=== PATIENT | female | born 1985 | race Caucasian/White ===

== ENCOUNTER → 2017-10-10 | Outpatient (CLI) | payer OTHER, BC | LOC: LABNPT 14:26 | PROVIDERS: ATTEND Obstetrics & Gynecology | DX: Z53.9 Procedure and treatment not carried out, unspecified reason (principal) ==

== ENCOUNTER 2017-11-06 21:22 | Outpatient (CLI) | payer OTHER ==
[~2017-11-06] VITALS: Ht 162.6 cm; Wt 68.5 kg
[2017-11-06 21:38] VITALS: BP 109/74
[2017-11-06 23:02] VITALS: BP 107/70
--- NOTE | 2017-11-07 13:55 | Physician Query-Final Dx ---
LUDY DESAI 11/07/17 1355: Clinic Account Progress/Dx Physician Query: Please give diagnosis Date of Service Nov 06, 2017 at 21:22 SANJANA LEDESMA MD 11/10/17 0809: Clinic Account Progress/Dx DIAGNOSIS: Diagnosis False labor LUDY DESAI Nov 07, 2017 13:55 SANJANA LEDESMA MD Nov 10, 2017 08:09
[2017-11-11] MEDS ORDERED: IBUP-1780 PO (08:20)
[2017-11-11] MEDS ORDERED: OXYC-465 PO (08:20)
[2017-11-11] MEDS ORDERED: DOCU100C37 PO (08:20)
== END 2017-11-06 23:20 | disposition home or self-care (01) ==
LOC: WSo 21:22 → LDRP 21:23 → WSo 23:20
PROVIDERS: ATTEND Obstetrics & Gynecology
DX: O47.1 False labor at or after 37 completed weeks of gestation (principal); Z3A.37 37 weeks gestation of pregnancy
CPT/HCPCS: 99213

== ENCOUNTER 2017-11-10 07:00 | Inpatient (IN) | payer BC, OTHER ==
[2017-11-10] VITALS (54 sets, daily range): BP systolic 87–119; BP diastolic 52–81
[~2017-11-10] VITALS: Ht 162.6 cm; Wt 70.0 kg
[2017-11-10] MEDS ORDERED: D5 LR IV SOLUTION 1,000 ML IV ONE (07:21)
[2017-11-10] MEDS: D5 LR IV SOLUTION 1,000 ML IV SCH ×2 (07:45→15:45)
[2017-11-10] MEDS ORDERED: OXYTOCIN/NORMAL SALINE 500 ML IV SCH ×2 (08:04→17:56)
[2017-11-10] MEDS ORDERED: PREN-148 PO (08:14)
[2017-11-10] MEDS ORDERED: LEVO88TA54 PO (08:14)
[2017-11-10 08:31] LABS: BASOPHILS % (AUTO) 0 % (0-10); EOSINOPHILS # (AUTO) 0.1 10^3/uL (0.0-0.3); EOSINOPHILS % (AUTO) 1 % (0-10); HEMATOCRIT 38 % (35-52); HEMOGLOBIN 13.3 G/DL (11.5-16.0); LYMPHOCYTES # (AUTO) 2.4 X 10^3 (1.0-4.0); LYMPHOCYTES % (AUTO) 21 % (12-44); MEAN CORPUSCULAR HEMOGLOBIN 33 PG (25-34); MEAN CORPUSCULAR HGB CONC 35 G/DL (32-36); MEAN CORPUSCULAR VOLUME 93 FL (80-99); MEAN PLATELET VOLUME 10.4 FL (7.4-10.4); MONOCYTES # (AUTO) 0.8 X 10^3 (0.0-1.0); MONOCYTES % (AUTO) 7 % (0-12); NEUTROPHILS # (AUTO) 8.3 X 10^3 (1.8-7.8); NEUTROPHILS % (AUTO) 71 % (42-75); PLATELET COUNT 142 10^3/uL (130-400); RED BLOOD COUNT 4.06 10^6/uL (4.35-5.85); RED CELL DISTRIBUTION WIDTH 13.3 % (10.0-14.5); WHITE BLOOD COUNT 11.7 10^3/uL (4.3-11.0)
[2017-11-10] MEDS ORDERED: SUFENTA 0.6MCG/ML BUPIVA 0.125 100 ML ONE (09:30)
[2017-11-10] MEDS ORDERED: fentaNYL INJECTION 100 MCG/2 ML AMP ONE (09:32)
[2017-11-10] MEDS ORDERED: BUPIVACAINE 0.25% 30 ML (SENSORCAINE) VIAL ONE (09:32)
[2017-11-10] MEDS ORDERED: LACTATED RINGERS 1,000 ML IV SCH (10:13)
[2017-11-10] MEDS ORDERED: diphenhydrAMINE 50 MG/ML INJ (BENADRYL) IV PRN (10:15)
[2017-11-10] MEDS ORDERED: NALOXONE 0.4 MG/ML 1 ML (NARCAN) VIAL IV PRN ×2 (10:15)
[2017-11-10] MEDS ORDERED: METOCLOPRAMIDE INJ 10 MG/2 ML (REGLAN) IV PRN (10:15)
[2017-11-10] MEDS ORDERED: ONDANSETRON 4 MG/2 ML (SDV) Z0FRAN IV PRN (10:15)
[2017-11-10] MEDS ORDERED: EPIDURAL (SUFENTA 0.6MCG/ML BUPIVA 0.125%) 100 ML BAG EPI PRN (10:15)
[2017-11-10] MEDS ORDERED: CATHETER FLUSH 10 ML SYR IV SCH (14:00)
[2017-11-10] MEDS ORDERED: LIDOCAINE/EPI 2% 1:200,00 (XYLOCAINE) 10 ML VIAL ONE (16:58)
[2017-11-10] MEDS ORDERED: ONDANSETRON 4 MG/2 ML (SDV) Z0FRAN IVP PRN (18:00)
[2017-11-10] MEDS ORDERED: TETANUS,DIPTH,PERTUSS P/F (BOOSTRIX) 0.5 ML VIAL IM ONE (18:00)
[2017-11-10] MEDS: KETOROLAC 30 MG/ML VIAL IV SCH (18:20)
[2017-11-10] MEDS: DOCUSATE SODIUM 100 MG (COLACE) CAP PO SCH (21:14)
[2017-11-10] MEDS: oxyCODONE/APAP 10/325MG (PERCOCET 10) TABLET PO PRN (21:14)
--- NOTE | 2017-11-11 00:26 | OPERATIVE REPORT ---
DATE OF SERVICE: 11/10/2017 DELIVERY NOTE The patient delivered by term spontaneous vaginal delivery a viable female infant with Apgars of 8 and 8 at 1 and 5 minutes respectively, weight of 8 pounds. Cord blood gas of 7.22 and a time of 1726. The was delivered over a midline episiotomy that was performed when the patient was unable to expel the baby over the perineum for lack of enough space. She requested episiotomy that was performed under local and the remnants of her epidural. Delivery was accomplished promptly thereafter. The infant was bulb suctioned on delivery of the head and again on completion of delivery. The umbilical cord was doubly clamped, father cut the cord and the baby was passed to mom's abdomen. Cord bloods were obtained. The placenta delivered spontaneously [place]. It was normal with a 3-vessel cord. The cervix, vagina, rectum and perineum were examined and found intact, except for the midline episiotomy, which was repaired with a single suture of 3-0 Vicryl Rapide in the usual manner until good hemostasis and good reapproximation. Sponge and needle counts were correct on completion of the delivery and the repair. Estimated blood loss was around 300 mL. The patient remained in the LDR for recovery. The baby remained with the mom. Job ID: [id number] DocumentID: [id number] Dictated Date: 11/10/2017 17:53:33 Storm Sash Maker Date: 11/11/2017 00:25:41 Dictated By: SANJANA LEDESMA MD
[2017-11-11] MEDS: KETOROLAC 30 MG/ML VIAL IV SCH ×2 (00:27→05:54)
[2017-11-11 00:30] VITALS: BP 92/57
[2017-11-11 05:55] VITALS: BP 100/69
[2017-11-11] MEDS: BENZOCAINE/MENTHOL (DERMOPLAST) 56 ML CAN TP PRN (06:19)
--- NOTE | 2017-11-11 08:19 | Progress Note-Standard ---
Standard Progress Note Progress Notes/Assess & Plan Date Seen by Provider: Nov 11, 2017 Time Seen by Provider: 08:19 Progress/Assessment & Plan This patient is without complaint. She is ambulating, voiding, tolerating by mouth well, has good pain control. Patient denies chest pain, denies shortness of breath, denies nausea vomiting, denies headache. Vital Signs Date Time Temp Pulse Resp B/P (MAP) Pulse Ox O2 Delivery O2 Flow Rate FiO2 11/11/17 05:55 98.0 66 18 100/69 (79) 97 11/11/17 00:30 98.4 68 18 92/57 (69) 98 Room Air 11/10/17 21:25 70 18 105/71 (82) Room Air 11/10/17 20:25 74 18 105/67 (80) Room Air 11/10/17 20:18 74 18 112/55 (74) Room Air 11/10/17 19:55 96.9 77 18 102/62 (75) Room Air 11/10/17 19:40 71 18 106/66 (79) Room Air 11/10/17 19:25 97.5 82 18 115/66 (82) Room Air 11/10/17 19:10 85 18 106/73 (84) Room Air 11/10/17 18:55 87 18 106/69 (81) Room Air 11/10/17 18:40 74 18 103/68 (80) Room Air 11/10/17 18:25 97.8 83 18 96/60 (72) Room Air 11/10/17 18:10 73 18 107/72 (84) Room Air 11/10/17 17:56 85 18 115/75 (88) Room Air 11/10/17 17:55 77 18 113/74 (87) Room Air 11/10/17 17:40 86 18 110/67 (81) Room Air 11/10/17 17:11 80 18 112/72 (85) Room Air 11/10/17 16:42 87 18 115/72 (86) Room Air 11/10/17 16:26 71 18 103/73 (83) Room Air 11/10/17 16:11 97.4 83 18 112/77 (89) Room Air 11/10/17 15:56 76 18 117/81 (93) Room Air 11/10/17 15:43 99 18 111/73 (86) Room Air 11/10/17 15:26 72 18 110/72 (85) Room Air 11/10/17 15:12 77 18 95/57 (70) Room Air 11/10/17 14:58 74 18 110/72 (85) Room Air 11/10/17 14:25 75 18 98/56 (70) Room Air 11/10/17 14:12 67 18 94/56 (69) Room Air 11/10/17 13:59 75 18 110/67 (81) Room Air 11/10/17 13:42 70 18 112/72 (85) Room Air 11/10/17 13:28 97.4 83 18 114/76 (89) Room Air 11/10/17 13:26 75 18 87/52 (64) Room Air 11/10/17 13:10 68 18 102/66 (78) Room Air 11/10/17 12:55 68 18 99/65 (76) Room Air 11/10/17 12:42 68 18 110/71 (84) Room Air 11/10/17 12:25 86 18 113/79 (90) Room Air 11/10/17 12:12 74 18 115/77 (90) 100 Room Air 11/10/17 11:55 82 18 109/72 (84) 100 Room Air 11/10/17 11:42 73 18 112/73 (86) 99 Room Air 11/10/17 11:30 81 18 108/72 (84) 100 Room Air 11/10/17 11:10 70 18 101/65 (77) 97 Room Air 11/10/17 11:00 74 18 104/68 (80) 98 Room Air 11/10/17 10:45 68 18 106/66 (79) 99 Room Air 11/10/17 10:35 98.6 66 18 108/67 (81) 99 Room Air 11/10/17 10:20 83 18 108/70 (83) 98 Room Air 11/10/17 10:15 77 18 110/71 (84) 98 Room Air 11/10/17 10:12 83 18 113/71 (85) 99 Room Air 11/10/17 10:09 78 18 116/74 (88) 99 Room Air 11/10/17 10:05 77 18 113/69 (84) 99 Room Air 11/10/17 10:02 78 18 108/66 (80) 99 Room Air 11/10/17 09:59 79 18 115/69 (84) 99 Room Air 11/10/17 09:57 77 18 116/71 (86) 98 Room Air 11/10/17 09:51 75 18 114/73 (87) 98 Room Air 11/10/17 09:45 80 18 119/73 (88) 100 Room Air 11/10/17 09:30 73 18 104/67 (79) 11/10/17 08:58 75 18 109/70 (83) I & O 11/11/17 07:00 Intake Total 2500 ml Balance 2500 ml Signs are stable. Patient is afebrile. Fundus is firm below the umbilicus and nontender. Extremities show no clubbing cyanosis. There is no Homans sign. Assessment and plan day number 1 status post term spontaneous vaginal delivery doing well. Plan is for routine convalescence care with discharge home on patient request Final Diagnosis Term spontaneous vaginal delivery SANJANA LEDESMA MD Nov 11, 2017 8:19 am
[2017-11-11] MEDS ORDERED: IBUP-1780 PO (08:20)
[2017-11-11] MEDS ORDERED: DOCU100C37 PO (08:20)
[2017-11-11] MEDS ORDERED: OXYC-465 PO (08:20)
--- NOTE | 2017-11-11 08:22 | Discharge Instructions ---
Discharge Instructions Discharge Medications New, Converted or Re-Newed RX: RX on Chart Patient Instructions Patient Instructions: As directed Return to The Hospital For: As directed Activity & Diet Discharge Diet: No Restrictions Activity as Tolerated: No Orders-Post D/C & Referrals Follow Up Appt: Call to make follow up appt. for patient in 4 weeks. Activity Per routine post vaginal delivery instructions. Diet as tolerated Patient may shower or tub bathe as desired. SANJANA LEDESMA MD Nov 11, 2017 8:22 am
[2017-11-11 08:30] VITALS: BP 107/72
[2017-11-11] MEDS: DOCUSATE SODIUM 100 MG (COLACE) CAP PO SCH ×2 (09:36→22:16)
[2017-11-11] MEDS: oxyCODONE/APAP 10/325MG (PERCOCET 10) TABLET PO PRN ×2 (10:23→23:54)
[2017-11-11 12:15] VITALS: BP 105/72
[2017-11-11] MEDS: IBUPROFEN 800 MG (MOTRIN) TAB PO SCH ×2 (15:02→22:16)
[2017-11-11 17:10] VITALS: BP 96/65
[2017-11-11 22:10] VITALS: BP 88/59
[2017-11-12 04:10] VITALS: BP 90/62
[2017-11-12] MEDS: IBUPROFEN 800 MG (MOTRIN) TAB PO SCH ×3 (04:12→20:12)
[2017-11-12] MEDS: DOCUSATE SODIUM 100 MG (COLACE) CAP PO SCH ×2 (08:15→20:12)
--- NOTE | 2017-11-12 08:30 | Progress Note-Standard ---
Standard Progress Note Progress Notes/Assess & Plan Date Seen by Provider: Nov 12, 2017 Time Seen by Provider: 08:29 Progress/Assessment & Plan This patient is without complaint. She is ambulating, voiding, tolerating by mouth well, has good pain control. Patient denies chest pain, denies shortness of breath, denies nausea vomiting, denies headache. Vital Signs Date Time Temp Pulse Resp B/P (MAP) Pulse Ox O2 Delivery O2 Flow Rate FiO2 11/11/17 05:55 98.0 66 18 100/69 (79) 97 11/11/17 00:30 98.4 68 18 92/57 (69) 98 Room Air 11/10/17 21:25 70 18 105/71 (82) Room Air 11/10/17 20:25 74 18 105/67 (80) Room Air 11/10/17 20:18 74 18 112/55 (74) Room Air 11/10/17 19:55 96.9 77 18 102/62 (75) Room Air 11/10/17 19:40 71 18 106/66 (79) Room Air 11/10/17 19:25 97.5 82 18 115/66 (82) Room Air 11/10/17 19:10 85 18 106/73 (84) Room Air 11/10/17 18:55 87 18 106/69 (81) Room Air 11/10/17 18:40 74 18 103/68 (80) Room Air 11/10/17 18:25 97.8 83 18 96/60 (72) Room Air 11/10/17 18:10 73 18 107/72 (84) Room Air 11/10/17 17:56 85 18 115/75 (88) Room Air 11/10/17 17:55 77 18 113/74 (87) Room Air 11/10/17 17:40 86 18 110/67 (81) Room Air 11/10/17 17:11 80 18 112/72 (85) Room Air 11/10/17 16:42 87 18 115/72 (86) Room Air 11/10/17 16:26 71 18 103/73 (83) Room Air 11/10/17 16:11 97.4 83 18 112/77 (89) Room Air 11/10/17 15:56 76 18 117/81 (93) Room Air 11/10/17 15:43 99 18 111/73 (86) Room Air 11/10/17 15:26 72 18 110/72 (85) Room Air 11/10/17 15:12 77 18 95/57 (70) Room Air 11/10/17 14:58 74 18 110/72 (85) Room Air 11/10/17 14:25 75 18 98/56 (70) Room Air 11/10/17 14:12 67 18 94/56 (69) Room Air 11/10/17 13:59 75 18 110/67 (81) Room Air 11/10/17 13:42 70 18 112/72 (85) Room Air 11/10/17 13:28 97.4 83 18 114/76 (89) Room Air 11/10/17 13:26 75 18 87/52 (64) Room Air 11/10/17 13:10 68 18 102/66 (78) Room Air 11/10/17 12:55 68 18 99/65 (76) Room Air 11/10/17 12:42 68 18 110/71 (84) Room Air 11/10/17 12:25 86 18 113/79 (90) Room Air 11/10/17 12:12 74 18 115/77 (90) 100 Room Air 11/10/17 11:55 82 18 109/72 (84) 100 Room Air 11/10/17 11:42 73 18 112/73 (86) 99 Room Air 11/10/17 11:30 81 18 108/72 (84) 100 Room Air 11/10/17 11:10 70 18 101/65 (77) 97 Room Air 11/10/17 11:00 74 18 104/68 (80) 98 Room Air 11/10/17 10:45 68 18 106/66 (79) 99 Room Air 11/10/17 10:35 98.6 66 18 108/67 (81) 99 Room Air 11/10/17 10:20 83 18 108/70 (83) 98 Room Air 11/10/17 10:15 77 18 110/71 (84) 98 Room Air 11/10/17 10:12 83 18 113/71 (85) 99 Room Air 11/10/17 10:09 78 18 116/74 (88) 99 Room Air 11/10/17 10:05 77 18 113/69 (84) 99 Room Air 11/10/17 10:02 78 18 108/66 (80) 99 Room Air 11/10/17 09:59 79 18 115/69 (84) 99 Room Air 11/10/17 09:57 77 18 116/71 (86) 98 Room Air 11/10/17 09:51 75 18 114/73 (87) 98 Room Air 11/10/17 09:45 80 18 119/73 (88) 100 Room Air 11/10/17 09:30 73 18 104/67 (79) 11/10/17 08:58 75 18 109/70 (83) I & O 11/11/17 07:00 Intake Total 2500 ml Balance 2500 ml Signs are stable. Patient is afebrile. Fundus is firm below the umbilicus and nontender. Extremities show no clubbing cyanosis. There is no Homans sign. Assessment and plan day number 1 status post term spontaneous vaginal delivery doing well. Plan is for routine convalescence care with discharge home on patient request November 12, 2017 Patient is without complaint. She is ambulating, voiding, tolerating by mouth well, has good pain control. Patient is ready for discharge home however her baby will not be discharged as it has an elevated bilirubin. Patient will be discharged home and allowed to remain Vital Signs Date Time Temp Pulse Resp B/P (MAP) Pulse Ox O2 Delivery O2 Flow Rate FiO2 11/12/17 04:10 97.8 68 18 90/62 (71) 98 11/11/17 22:10 98.1 74 18 88/59 (69) 97 11/11/17 17:10 97.4 71 18 96/65 (75) 99 Room Air 11/11/17 12:15 97.6 74 18 105/72 (83) 100 Room Air 11/11/17 08:30 97.9 72 18 107/72 (84) 100 Room Air Signs are stable. Patient is afebrile. Fundus is firm below the umbilicus and nontender. Extremities show no clubbing cyanosis. There is no Homans sign. Assessment and plan day number 2 status post term spontaneous vaginal delivery doing well. Plan is for discharge to allow remaining in the baby is not to be discharged today Final Diagnosis T SANJANA JOY MD Nov 12, 2017 8:30 am
[2017-11-12 09:15] VITALS: BP 120/82
[2017-11-12] MEDS: oxyCODONE/APAP 10/325MG (PERCOCET 10) TABLET PO PRN ×3 (09:47→23:18)
[2017-11-12 12:50] VITALS: BP 131/88
[2017-11-12] MEDS: BENZOCAINE/MENTHOL (DERMOPLAST) 56 ML CAN TP PRN (13:05)
[2017-11-12 20:10] VITALS: BP 111/81
== END 2017-11-12 23:20 | disposition home or self-care (01) | DRG 775 ==
LOC: LDRP 07:00
PROVIDERS: ADMIT Obstetrics & Gynecology; ATTEND Obstetrics & Gynecology
PROC: 0W8NXZZ Division of Female Perineum, External Approach (ICD-10-PCS; principal; 2017-11-10)
PROC: 10E0XZZ Delivery of Products of Conception, External Approach (ICD-10-PCS; 2017-11-10)
DX: O80 Encounter for full-term uncomplicated delivery (principal); Z37.0 Single live birth; Z3A.37 37 weeks gestation of pregnancy
CPT/HCPCS: 36415; 82947; 82962; 85025; 86850; 86900; 86901

== ENCOUNTER 2020-01-20 05:56 | Outpatient (RCR) | payer OTHER ==
--- NOTE | 2020-01-16 11:58 | Discharge Inst-Surgical ---
Discharge Inst-Surgical Depart Medication/Instructions New, Converted or Re-Newed RX: RX on Chart Consults/Follow Up Patient Instructions: as directed Orders & Referrals Follow Up Appt: RTC on Monday January 27, 2020 at 0930 for staple removal Call to make follow up appt. for patient in 4 weeks with me. RTC with Dr. Dunn pr his instructions Activity: Rest for 24 hours, than as tolerated. Wound Care: May remove Band-Aid tomorrow. Replace as desired. Keep incisions clean and dry. Wash daily with soap and water. Please call in RX to patient pharmacy. Diet: As tolerated-Clear Liquids only if nauseated. Tomorrow, may shower or tub bathe as desired. No driving for 24 hours, no alcoholic beverages for 24 hours, and nothing per vagina (no tampons, douching, or intercourse) for 8 weeks. Patient to return to the clinic as soon as possible for: Temperature greater than 101F, Severe Pain, Foul discharge from incision or vagina, Excessive Bleeding (more than a period). Activity Activity as Tolerated: No Diet Discharge Diet: No Restrictions SANJANA LEDESMA MD Jan 16, 2020 11:58
[~2020-01-20] VITALS: Ht 162.6 cm; Wt 58.2 kg
[~2020-01-20 05:56] MED LIST: DOCU100C37 PO; IBUP-1780 PO; LEVO175T5 PO; LEVO88TA54 PO; OXYC-465 PO; PREN-148 PO
== END 2020-01-20 15:13 | disposition home or self-care (01) ==
LOC: PREOP 05:56
PROVIDERS: ATTEND Obstetrics & Gynecology
DX: Z01.818 Encounter for other preprocedural examination (principal); Z11.59 Encounter for screening for other viral diseases
CPT/HCPCS: 87635

== ENCOUNTER 2020-01-24 11:02 | Day surgery (SDC) | payer OTHER ==
[2020-01-24] VITALS (10 sets, daily range): BP systolic 102–127; BP diastolic 56–89
[~2020-01-24] VITALS: Ht 162.6 cm; Wt 58.2 kg
[2020-01-24] MEDS ORDERED: ceFAZolin INJECTION 1,000 MG in WATER (STERILE) FOR INJECTION 10 ML IV ONE (11:15)
[2020-01-24] MEDS: LACTATED RINGERS 1,000 ML IV PRN ×2 (11:25→13:55)
[2020-01-24 11:44] LABS: BASOPHILS # (AUTO) 0.1 10^3/uL (0.0-0.1); BASOPHILS % (AUTO) 1 % (0-10); EOSINOPHILS # (AUTO) 0.2 10^3/uL (0.0-0.3); EOSINOPHILS % (AUTO) 2 % (0-10); HEMATOCRIT 43 % (35-52); HEMOGLOBIN 15.5 G/DL (11.5-16.0); LYMPHOCYTES # (AUTO) 2.6 X 10^3 (1.0-4.0); LYMPHOCYTES % (AUTO) 32 % (12-44); MEAN CORPUSCULAR HEMOGLOBIN 32 PG (25-34); MEAN CORPUSCULAR HGB CONC 36 G/DL (32-36); MEAN CORPUSCULAR VOLUME 90 FL (80-99); MEAN PLATELET VOLUME 10.2 FL (7.4-10.4); MONOCYTES # (AUTO) 0.4 X 10^3 (0.0-1.0); MONOCYTES % (AUTO) 5 % (0-12); NEUTROPHILS # (AUTO) 4.8 X 10^3 (1.8-7.8); NEUTROPHILS % (AUTO) 60 % (42-75); PLATELET COUNT 230 10^3/uL (130-400); RED CELL DISTRIBUTION WIDTH 12.5 % (10.0-14.5)
[2020-01-24] MEDS ORDERED: BUP/EPI 0.5% 1:200,000 (SENSORCAINE) 30 ML VIAL ONE (12:13)
[2020-01-24] MEDS ORDERED: ESTRADIOL VAGINAL CREAM 42.5 GM (ESTRACE) VG ONE (12:13)
--- OUTSIDE RECORDS SUMMARY | 2020-01-24 12:35 | XMS REPORT | Continuity of Care Document ---
Author Organization Unknown Address Unknown Phone Unavailable Allergies Active Description Code Type Severity Reaction Onset Reported/Identified Relationship to Patient Clinical Status Yes No Known Drug Allergies [id number] Drug Allergy Unknown N/A 10/08/2008 Yes Penicillins [id number] Drug Aller gy Unknown N/A 11/06/2017 Yes Sulfa (Sulfonamide Antibiotics) [id number] Drug Allergy Unknown N/A 018 Medications There is no data. Problems Date Dx Coded Attending Type Code Diagnosis Diagnosed By 07/13/1512 SANJANA LEDESMA MD, Ot Z01.818 ENCOUNTER FOR OTHER PREPROCEDURAL EXAMIN 07/13/1512 SANJANA LEDESMA MD, Ot Z11.59 ENCOUNTER FOR SCREENING FOR OTHER VIRAL 01/16/2014 F 729.5 Pain in limb 03/27/2014 F 079.99 Vir al infection, unspec. 04/04/2014 F 473.9 UNSP ECIFIED SINUSITIS (CHRONIC) 04/04/2014 F V72.41 PRE GNANCY EXAMINATION OR TEST, NEGATIVE RESULT 09/10/2014 F 381.81 DYS FUNCTION OF EUSTACHIAN TUBE 12/08/2014 SAÚL FOWLER F 626. 0 ABSENCE OF MENSTRUATION 12/08/2014 SAÚL FOWLER F 626. 0 ABSENCE OF MENSTRUATION 01/23/2015 SAÚL FOWLER F 053. 9 HERPES ZOSTER WITHOUT MENTION OF COMPLICATION 10/11/2017 SANJANA LEDESMA MD, Ot Z53.9 PROCEDURE AND TREATMENT NOT CARRIED OUT, 11/06/2017 SANJANA LEDESMA MD, Ot O47.1 FALSE LABOR AT OR AFTER 37 COMPLETED WEE 11/06/2017 SANJANA LEDESMA MD, Ot Z3A.37 37 WEEKS GESTATION OF 11/07/2017 SANJANA LEDESMA MD, Ot Z53.9 PROCEDURE AND TREATMENT NOT CARRIED OUT, 11/10/2017 SANJANA LEDESMA MD, Ot O47.1 FALSE LABOR AT OR AFTER 37 COMPLETED WEE 11/10/2017 SANJANA LEDESMA MD, Ot Z3A.37 37 WEEKS GESTATION OF 11/12/2017 SANJANA LEDESMA MD, Ot O47.1 FALSE LABOR AT OR AFTER 37 COMPLETED WEE 11/12/2017 SANJANA LEDESMA MD, Ot Z3A.37 37 WEEKS GESTATION OF 11/12/2017 SANJANA LEDESMA MD, Ot O80 ENCOUNTER FOR FULL-TERM UNCOMPLICATED DE 11/12/2017 SANJANA LEDESMA MD, Ot Z37.0 SINGLE LIVE 11/12/2017 SANJANA LEDESMA MD, Ot Z3A.37 37 WEEKS GESTATION OF 11/27/2017 SANJANA LEDESMA MD, Ot Z53.9 PROCEDURE AND TREATMENT NOT CARRIED OUT, Procedures Code Description Performed By Sathya fuller On [id number] DI VISION OF FEMALE PERINEUM, EXTERNAL AP 11/10/2017 [id number] DE LIVERY OF PRODUCTS OF CONCEPTION, EXTE 11/10/2017 Results Test Result Range Serum or plasma glucose measurement (mas s/volume) - 11/10/17 07:45 Serum or plasma glucose measurement (mass/volume) 77 mg/dL 70-105 Complete blood count (CBC) with automate d white blood cell (WBC) differential - 11/10/17 07:45 Blood leukocytes automated count (number/volume) 11.7 10*3/uL 4.3-11.0 Blood erythrocytes automated count (number/volume) 4.06 10*6/uL 4.35-5.85 Venous blood hemoglobin measurement (mass/volume) 13.3 g/dL 11.5-16.0 Blood hematocrit (volume fraction) 38 % 35-52 Automated erythrocyte mean corpuscular volume 93 [ foz_us] 80-99 Automated erythrocyte mean corpuscular h emoglobin (mass per erythrocyte) 33 pg 25-34 Automated erythrocyte mean corpuscular h emoglobin concentration measurement (mass/volume) 35 g/dL 32-36 Automated erythrocyte distribution width ratio 13. 3 % 10.0- 14.5 Automated blood platelet count (count/volume) 142 10*3/uL 130-400 Automated blood platelet mean volume measurement 10.4 [foz_us] 7.4-10.4 Automated blood neutrophils/100 leukocytes 71 % 42-75 Automated blood lymphocytes/100 leukocytes 21 % 12-44 Blood monocytes/100 leukocytes 7 % 0-12 Automated blood eosinophils/100 leukocytes 1 % 0-10 Automated blood basophils/100 leukocytes 0 % 0-10 Blood neutrophils automated count (number/volume) 8.3 10*3 1.8-7.8 Blood lymphocytes automated count (number/volume) 2.4 10*3 1.0-4.0 Blood monocytes automated count (number/volume) 0. 8 10*3 0.0-1.0 Automated eosinophil count 0.1 10*3/uL 0 .0-0.3 Automated blood basophil count (count/volume) 0.0 10*3/uL 0.0-0.1 Blood type T Indirect antibody screen [facility] - 11/10/17 07:45 ABO+Rh group BP NRG Transfusion band number [id number] NRG Blood group antibody screen NEGATIVE NR G Capillary blood glucose measurement by g lucometer (mass/volume) - 11/10/17 08:54 Capillary blood glucose measurement by glucometer (mas s/volume) 89 mg/dL 70-110 TSH w/ FREE T4 - 01/16/19 08:25 TSH 4.41 mIU/L NRG T4, FREE 1.2 ng/dL 0.8-1.8 LIPID PANEL - 01/16/19 08:25 CHOLESTEROL, TOTAL 176 mg/dL <200 HDL CHOLESTEROL 70 mg/dL >50 TRIGLYCERIDES 38 mg/dL <150 LDL-CHOLESTEROL 95 mg/dL (calc) NRG CHOL/HDLC RATIO 2.5 (calc) <5.0 NON HDL CHOLESTEROL 106 mg/dL (calc) <13 0 CMP - 01/16/19 08:25 GLUCOSE 69 mg/dL 65-99 UREA NITROGEN (BUN) 9 mg/dL 7-25 CREATININE 0.62 mg/dL 0.50-1.10 eGFR NON-AFR. BAHRAINI 118 mL/min/1.73m2 > OR = 60 eGFR 137 mL/min/1.73m2 > OR = 60 BUN/CREATININE RATIO NOT APPLICABLE (calc) 6-22 SODIUM 139 mmol/L 135-146 POTASSIUM 3.9 mmol/L 3.5-5.3 CHLORIDE 104 mmol/L 98-110 CARBON DIOXIDE 28 mmol/L 20-32 CALCIUM 9.2 mg/dL 8.6-10.2 PROTEIN, TOTAL 6.9 g/dL 6.1-8.1 ALBUMIN 4.7 g/dL 3.6-5.1 GLOBULIN 2.2 g/dL (calc) 1.9-3.7 ALBUMIN/GLOBULIN RATIO 2.1 (calc) 1.0-2. 5 BILIRUBIN, TOTAL 0.6 mg/dL 0.2-1.2 ALKALINE PHOSPHATASE 69 U/L 33-115 AST 22 U/L 10-30 ALT 20 U/L 6-29 CBC w/MANUAL DIFF - 01/16/19 08:25 WHITE BLOOD CELL COUNT 6.6 Thousand/uL 3 .8-10.8 RED BLOOD CELL COUNT 4.51 Million/uL 3.8 0-5.10 HEMOGLOBIN 14.3 g/dL 11.7-15.5 HEMATOCRIT 42.1 % 35.0-45.0 MCV 93.3 fL 80.0-100.0 MCH 31.7 pg 27.0-33.0 MCHC 34.0 g/dL 32.0-36.0 RDW 12.3 % 11.0-15.0 PLATELET COUNT 197 Thousand/uL 140-400 MPV 10.1 fL 7.5-12.5 ABSOLUTE NEUTROPHILS 3755 cells/uL 1500- 7800 ABSOLUTE MONOCYTES 257 cells/uL 200-950 ABSOLUTE EOSINOPHILS 257 cells/uL 15-500 ABSOLUTE BASOPHILS 0 cells/uL 0-200 NEUTROPHILS 56.9 % NRG LYMPHOCYTES 33.3 % NRG MONOCYTES 3.9 % NRG EOSINOPHILS 3.9 % NRG BASOPHILS 0 % NRG ABSOLUTE BAND NEUTROPHILS 132 cells/uL 0 -750 ABSOLUTE LYMPHOCYTES 2198 cells/uL 850-3 900 BAND NEUTROPHILS 2.0 % NRG PLATELET ESTIMATION ADEQUATE ADEQUATE CBC MORPHOLOGY NORMAL COMMENT(S) NRG CBC w/MANUAL DIFF - 03/05/19 09:02 WHITE BLOOD CELL COUNT 6.4 Thousand/uL 3 .8-10.8 RED BLOOD CELL COUNT 4.66 Million/uL 3.8 0-5.10 HEMOGLOBIN 15.1 g/dL 11.7-15.5 HEMATOCRIT 43.7 % 35.0-45.0 MCV 93.8 fL 80.0-100.0 MCH 32.4 pg 27.0-33.0 MCHC 34.6 g/dL 32.0-36.0 RDW 12.0 % 11.0-15.0 PLATELET COUNT 211 Thousand/uL 140-400 MPV 9.9 fL 7.5-12.5 ABSOLUTE NEUTROPHILS 3840 cells/uL 1500- 7800 ABSOLUTE MONOCYTES 256 cells/uL 200-950 ABSOLUTE EOSINOPHILS 192 cells/uL 15-500 ABSOLUTE BASOPHILS 128 cells/uL 0-200 NEUTROPHILS 60.0 % NRG LYMPHOCYTES 31.0 % NRG MONOCYTES 4.0 % NRG EOSINOPHILS 3.0 % NRG BASOPHILS 2.0 % NRG ABSOLUTE LYMPHOCYTES 1984 cells/uL 850-3 900 PLATELET ESTIMATION ADEQUATE ADEQUATE CBC MORPHOLOGY NORMAL COMMENT(S) NRG VITAMIN D, 25-H - 11/15/19 08:08 VITAMIN D,25-OH,TOTAL,IA 38 ng/mL 30-10 0 Coronavirus SARS-CoV-2 SO 2018 - 0 08:42 Coronavirus Ab [Units/volume] in Serum Negative Negative Complete blood count (CBC) with automate d white blood cell (WBC) differential - 01/24/20 11:25 Blood leukocytes automated count (number/volume) 8.0 10*3/uL 4.3-11.0 Blood erythrocytes automated count (number/volume) 4.78 10*6/uL 4.35-5.85 Venous blood hemoglobin measurement (mass/volume) 15.5 g/dL 11.5-16.0 Blood hematocrit (volume fraction) 43 % 35-52 Automated erythrocyte mean corpuscular volume 90 [ foz_us] 80-99 Automated erythrocyte mean corpuscular h emoglobin (mass per erythrocyte) 32 pg 25-34 Automated erythrocyte mean corpuscular h emoglobin concentration measurement (mass/volume) 36 g/dL 32-36 Automated erythrocyte distribution width ratio 12. 5 % 10.0- 14.5 Automated blood platelet count (count/volume) 230 10*3/uL 130-400 Automated blood platelet mean volume measurement 10.2 [foz_us] 7.4-10.4 Automated blood neutrophils/100 leukocytes 60 % 42-75 Automated blood lymphocytes/100 leukocytes 32 % 12-44 Blood monocytes/100 leukocytes 5 % 0-12 Automated blood eosinophils/100 leukocytes 2 % 0-10 Automated blood basophils/100 leukocytes 1 % 0-10 Blood neutrophils automated count (number/volume) 4.8 10*3 1.8-7.8 Blood lymphocytes automated count (number/volume) 2.6 10*3 1.0-4.0 Blood monocytes automated count (number/volume) 0. 4 10*3 0.0-1.0 Automated eosinophil count 0.2 10*3/uL 0 .0-0.3 Automated blood basophil count (count/volume) 0.1 10*3/uL 0.0-0.1 Blood type T Indirect antibody screen [facility] - 01/24/20 11:25 WRISTBAND NUMBER [id number] NRG ABO+Rh group BP NRG Blood group antibody screen NEGATIVE NR G Encounters ACCT No. Visit Date/Time Discharge Status Pt. Type Provider Facility Loc./Unit Complaint [id number] 01/23/2015 09:45:00 01/23/2015 10:4 5:00 DIS CL [facility] [id number] 12/08/2014 11:33:00 12/08/2014 15:3 3:00 DIS OP [facility] OT [id number] 12/08/2014 10:00:00 12/08/2014 11:0 0:00 DIS [facility] [id number] 09/10/2014 11:00:00 Document Registration [id number] 04/04/2014 13:30:00 Document Registration [id number] 03/27/2014 09:30:00 Document Registration [id number] 01/16/2014 10:45:00 Document Registration [id number] 01/20/2020 05:56:00 020 15:13:00 DIS Outpatient SANJANA LEDESMA MD [facility] PREOP DYSFUNCTIONAL U TERINE BLEEDING, RANDI [id number] 11/10/2017 07:00:00 018 23:20:00 DIS Inpatient SANJANA LEDESMA MD [facility] LDRP INDUCTION [id number] 11/06/2017 21:22:00 018 23:20:00 DIS Outpatient SANJANA LEDESMA MD [facility] WSo CONTRACTIONS [id number] 10/10/2017 14:26:00 018 23:59:59 CLS Outpatient SANJANA LEDESMA MD [facility] LABNPT [id number] 01/24/2020 12:45:00 P EN Preadmit SANJANA LEDESMA MD [facility] DYSFUNCTIONAL UTERINE BLEEDI SUNNYRANDI [id number] 11/15/2019 08:00:00 11/15/2019 23:59:5 9 CLS Outpatient KEILA BRODERICK [facility] [id number] 11/15/2019 08:00:00 Document Registration [id number] 03/05/2019 08:20:00 Document Registration [id number] 01/16/2019 09:00:00 Document Registration
[2020-01-24] MEDS ORDERED: LACTATED RINGERS 1,000 ML IV ONE (12:39)
[2020-01-24] MEDS ORDERED: ONDANSETRON 4 MG/2 ML (SDV) Z0FRAN ONE (12:39)
[2020-01-24] MEDS ORDERED: ROCURONIUM 10 MG/ML 5 ML SYRINGE IV ONE (12:39)
[2020-01-24] MEDS ORDERED: proPOfol 200 MG/20 ML (DIPRIVAN) VIAL IV ONE (12:39)
[2020-01-24] MEDS ORDERED: LIDOCAINE PF 2% 5 ML (XYLOCAINE) VIAL ONE (12:39)
[2020-01-24] MEDS ORDERED: GLYCOPYRROLATE 0.2 MG/ML (ROBINUL) 2 ML VIAL ONE (12:40)
[2020-01-24] MEDS ORDERED: MIDAZOLAM 2 MG/2 ML (VERSED) VIAL ONE (12:40)
[2020-01-24] MEDS ORDERED: fentaNYL INJECTION 100 MCG/2 ML AMP ONE ×2 (12:40→14:39)
[2020-01-24] MEDS ORDERED: NEOSTIGMINE 3 MG/3 ML VIAL ONE (12:40)
--- NOTE | 2020-01-24 12:58 | Progress Note-Pre Operative ---
Pre-Operative Progress Note H&P Reviewed The H&P was reviewed, patient examined and no changes noted. Date Seen by Provider: Jan 24, 2020 Time Seen by Provider: 12:57 Date H&P Reviewed: Jan 24, 2020 Time H&P Reviewed: 12:58 Pre-Operative Diagnosis: DUB/MENORRHAGIA/RANDI/vAGINAL PROLAPSE SANJANA LEDESMA MD Jan 24, 2020 12:58
--- NOTE | 2020-01-24 13:00 | Progress Note-Post Operative ---
Post-Operative Progess Note Surgeon (s)/Heavy Duty Diesel Mechanic (s) Surgeon SANJANA LEDESMA MD Heavy Duty Diesel Mechanic: Audelia Talavera Pre-Operative Diagnosis DUB/MENORRHAGIA/RANDI/vAGINAL PROLAPSE Post-Operative Diagnosis SAME WITH PATH PENDING Procedure & Operative Findings Date of Procedure 01/24/20 Procedure Performed/Findings TLH/BS/A&P REPAIRS with enterocele repair - ((PVS AND CYSTO PER DR. MOTT)) Anesthesia Type GETA Estimated Blood Loss Estimated blood loss (mL): 300 CC Specimens/Packing Specimens Removed TLH/BS Packing: KERLIX IN VAGINA SANJANA LEDESMA MD Jan 24, 2020 13:00
[2020-01-24] MEDS ORDERED: DOCU100C37 PO (13:02)
[2020-01-24] MEDS ORDERED: IBUP-1780 PO (13:02)
[2020-01-24] MEDS ORDERED: OXYC-465 PO (13:02)
--- NOTE | 2020-01-24 13:03 | Discharge Inst-Surgical ---
Discharge Inst-Surgical Depart Medication/Instructions New, Converted or Re-Newed RX: RX on Chart Consults/Follow Up Patient Instructions: DIRECTED Orders & Referrals Follow Up Appt: RTC on Monday January 27, 2020 at 0930 for staple removal Call to make follow up appt. for patient in 4 weeks. Activity: Rest for 24 hours, than as tolerated. Wound Care: May remove Band-Aid tomorrow. Replace as desired. Keep incisions clean and dry. Wash daily with soap and water. Please call in RX to patient pharmacy. Diet: As tolerated shower or tub bathe as desired. No driving for 24 hours, no alcoholic beverages for 24 hours, and nothing per vagina (no tampons, douching, or intercourse) for 8 weeks. Patient to return to the clinic as soon as possible for: Temperature greater than 101F, Severe Pain, Foul discharge from incision or vagina, Excessive Bleeding (more than a period). Activity Activity as Tolerated: No Diet Discharge Diet: No Restrictions SANJANA LEDESMA MD Jan 24, 2020 13:03
[2020-01-24] MEDS ORDERED: SEVOFLURANE (ULTANE) 15 ML INHAL SOLN ONE (15:24)
[2020-01-24] MEDS ORDERED: ONDANSETRON 4 MG/2 ML (SDV) Z0FRAN IVP PRN ×2 (15:30→16:00)
[2020-01-24] MEDS ORDERED: fentaNYL INJECTION 100 MCG/2 ML AMP IVP ONE (15:30)
[2020-01-24] MEDS ORDERED: morphine INJ 10 MG/ML 1ML (SYR OR VIAL) IVP ONE (15:30)
[2020-01-24] MEDS ORDERED: MEPERIDINE (DEMEROL) INJ 50 MG/ML IVP ONE (15:30)
[2020-01-24] MEDS ORDERED: PROMETHAZINE INJ 25 MG/ML (PHENERGAN) AMP IM PRN (16:00)
[2020-01-24] MEDS ORDERED: KETOROLAC 30 MG/ML VIAL IVP SCH (16:00)
[2020-01-24] MEDS ORDERED: ESTROGENS CONJ INJECTION 25 MG in WATER (STERILE) FOR INJECTION 5 ML IV ONE (16:00)
[2020-01-24] MEDS ORDERED: BENZOCAINE/MENTHOL (DERMOPLAST) 60 ML CAN TP PRN (16:00)
[2020-01-24] MEDS ORDERED: MEPERIDINE (DEMEROL) INJ 100 MG/ML IM PRN (16:00)
--- NOTE | 2020-01-24 16:10 | NUR ---
1610 Report received from JONI PENA. Patient resting on right side with eyes closed. Arouses to verbal stimuli and then closes eyes again. States pain 5:10. Complains of vaginal and rectal pressure due to packing. Abd sites dry and intact x3. LR infusing via left AC. No redness noted at site. Ngay to dd. Drains clear yellow urine. 1710 Report given to Ciarra White RN.
[2020-01-24] MEDS ORDERED: KETOROLAC 30 MG/ML VIAL ONE (16:47)
[2020-01-24] MEDS ORDERED: PROMETHAZINE INJ 25 MG/ML (PHENERGAN) AMP ONE (17:28)
[2020-01-24] MEDS ORDERED: MEPERIDINE (DEMEROL) INJ 100 MG/ML ONE (17:28)
--- NOTE | 2020-01-24 17:34 | NUR ---
Demerol 100mg and Phenergan 25mg IM given in Rt.AT.
--- NOTE | 2020-01-24 17:42 | NUR ---
Lt.AC IV site dc'd r/t infiltrated. #20g IV to Rt.hand x1 attempt by this RN. site patent, secured with opsite. pt tolerated well. cont previous IVF infusion.
--- NOTE | 2020-01-24 18:30 | NUR ---
pt resting with unlabored respirations, awakens when called by name. denies c/o's @ time.
--- NOTE | 2020-01-24 19:18 | NUR ---
Report given to JEAN Ferris.
[2020-01-24] MEDS: D5 LR IV SOLUTION 1,000 ML IV SCH ×2 (19:48→22:51)
--- NOTE | 2020-01-24 21:27 | OPERATIVE REPORT ---
DATE OF SERVICE: 01/24/2020 PREOPERATIVE DIAGNOSIS: On my part, urinary incontinence. POSTOPERATIVE DIAGNOSIS: On my part, urinary incontinence. OPERATION PERFORMED: Pubovaginal sling and cystoscopy. SURGEON: Shelley Mott MD. ANESTHESIA: General. TOP EXECUTIVE: Christian Balderrama MD COMPLICATIONS: None. DESCRIPTION OF PROCEDURE: After Dr. Balderrama performed the first part of his surgery that he will dictate, I went ahead and inserted the Nagy catheter draining clear urine. I passed the Solyx device on both sides using the described technique. The sling was sitting nicely under the mid urethra with no twisting, no tension. I went ahead and removed the Nagy catheter, performed cystoscopy to confirm the integrity of the bladder, ureteral orifices and urethra with no foreign bodies and presence of the sling under the mid urethra. I left the catheter half full to perform a manual Valsalva maneuver that was negative. I reinserted the Nagy catheter after removing the cystoscope and draining clear fluid. Dr. Balderrama performed the rest of his surgery that he will dictate. Estimated blood loss for my part negligible. Job ID: [id number] DocumentID: [id number] Dictated Date: 01/24/2020 14:49:08 Operations General Agent Date: 01/24/2020 21:27:36 Dictated By: SHELLEY MOTT MD
[2020-01-24] MEDS: oxyCODONE/APAP 5/325MG (PERCOCET 5) TABLET PO PRN (21:41)
--- NOTE | 2020-01-24 22:06 | OPERATIVE REPORT ---
DATE OF SERVICE: 01/24/2020 PREOPERATIVE DIAGNOSES: Dysfunctional uterine bleeding, chronic pelvic pain, stress urinary incontinence and vaginal and uterine prolapse. POSTOPERATIVE DIAGNOSES: Dysfunctional uterine bleeding, chronic pelvic pain, stress urinary incontinence and vaginal and uterine prolapse. OPERATIVE PROCEDURE: Total laparoscopic hysterectomy with bilateral salpingectomies as well as anterior and posterior vaginal repairs with enterocele repair and with Dr. Dunn performing a pubovaginal sling and a cystoscopy. OPERATIVE DESCRIPTION: With the patient in the supine position under satisfactory general anesthesia, she was repositioned in dorsal lithotomy position in the [facility] and prepped and draped in the usual fashion for abdominal and vaginal surgery. Nagy catheter was placed in the urinary bladder. Weighted speculum placed in posterior fornix of vagina, cervix exposed and grasped anteriorly with single tooth tenaculum. Uterus was sounded to 12 cm with uterine sound. The cervix was then serially dilated with Jordan dilators to accommodate a [id number] two manipulator was used, which was placed using a 6 mm x 8 cm uterine probe and a 30 mm colpotomy ring. Sutures of #1 Vicryl placed at 3 and 9 o'clock position of the cervix to affix the uterus to the manipulator. The patient was brought in low dorsal lithotomy position after the speculum and tenaculum were removed from the vagina. A 12 mm incision was made 6 cm superior to the umbilicus. Veress needle was placed through that incision into the abdominal cavity. Correct placement was confirmed with water drop test. The abdomen was insufflated with 2.4 liters of carbon dioxide. The Veress needle was removed and a 12 mm Optiview laparoscopic port placed. The abdominal wall was transilluminated and 8 mm ports were placed through incisions of those sizes 8 cm lateral to the umbilicus at a level approximately 2.5 cm above the umbilicus. All three incision sites were infiltrated with 0.25% Marcaine with epinephrine prior to incision. At this point, the patient was placed in Trendelenburg allowing the bowel spill out of the pelvis. The da Juancho column was advanced on the patient and docked and operative instrument placed in right and left lateral ports and I retired to the da Juancho console. At the console using the vessel sealer on the right and a bipolar fenestrated grasper on the left. The pelvis first examined. Both ovaries were normal as were the fallopian tubes, although it did appear that the patient had endometriosis involving at least the fallopian tubes and the uterus. The appendix was identified. It was a normal vermiform appendix and it was left in situ. The laparoscope was brought back to the pelvis. The right fallopian tube was grasped and elevated using the vessel sealer, the mesosalpinx was clamped, cauterized and divided. This continued stepwise until reaching the uteroovarian pedicle was clamped, cauterized and divided as well, this continued across the round ligament down the broad ligament and then across the cardinal ligament as well. Same procedure performed on the left, thus allowing for removal of both fallopian tubes with conservation of both ovaries. The anterior lower uterine segment peritoneum was now divided using monopolar eda on the right arm. The bladder was carefully dissected off the lower uterine segment and then colpotomy incision was started at 12 o'clock position onto the colpotomy ring that was continued circumferentially until the entire colpotomy ring was exposed. The uterus with tubes still attached was extracted through the vagina. Both ureters were seemed to peristalse before initiating any of my dissection throughout the dissection and was confirmed again at this point. Vaginal cuff was now closed with running suture of V-Loc barbed suture starting from the left angle and continuing across to the right angle taking care to ensure inclusion of the uterine vessels bilaterally. The bladder peritoneum was reapproximated and then the suture was cut and the needle removed. The pelvis was examined for hemostasis, which was complete. There was no significant remaining abnormal pathology. At this point, the laparoscopic portion of the procedure was complete, the operative instruments were removed under direct vision as were the ports. Job ID: [id number] DocumentID: [id number] Dictated Date: 01/24/2020 14:59:21 Radio Repairman Date: 01/24/2020 22:05:29 Dictated By: SANJANA LEDEMSA MD
[2020-01-24] MEDS: KETOROLAC 30 MG/ML VIAL IVP SCH (22:19)
--- NOTE | 2020-01-24 22:20 | OPERATIVE REPORT ---
DATE OF SERVICE: ADDENDUM OPERATIVE DESCRIPTION: Uterus was freed after making the colpotomy incision circumferentially onto the colpotomy ring. The uterus with the tubes still attached was extracted through the vagina. Vaginal cuff was closed with a single suture of V-Loc barbed suture starting from the left angle and continuing across to the right, taking care to ensure inclusion of the uterine vessels bilaterally. The vaginal cuff was reapproximated with the final stitches of that suture. With hemostasis complete, no abnormal pathology, the laparoscopic portion of the procedure was complete and terminated. The operative instruments were removed under direct vision as were the ports. The abdomen was evacuated of insufflating gas in the process of removing the ports. The skin incisions were closed with shelton. The fascia at the supraumbilical incision was closed with [id number] suture of 2-0 Vicryl. The patient was now repositioned in dorsal lithotomy position for the vaginal portion of the surgery. Anterior repair was initiated by placing Maryan clamps on the anterior vaginal wall with a weighted speculum for exposure. The vaginal wall was opened in the midline. That opening was continued to approximately a cm from the urethral meatus and all the way to the vaginal apex. The vaginal wall was then dissected off the muscularis of the bladder back to the pubic rami bilaterally. The endopelvic fascia and bladder wall were then plicated with 2-0 Vicryl suture, elevating the bladder and lengthening the urethra. At this point, Dr. Dunn assumed care of the patient for a pubovaginal sling and cystoscopy, which he will dictate. I remained to assist with Dr. Dunn's portion of the procedure. Upon completion of Dr. Dunn's portion of the procedure, I resumed care of the patient, resected redundant anterior vaginal wall muscularis mucosa was removed and then removed that tissue and then closed the vaginal wall with a running locked suture of 3-0 Vicryl Rapide. Good hemostasis was achieved. Nagy catheter was left to dependent drainage and was draining clear yellow urine throughout the case and continued to do so at this point. Posterior repair was affected by placing Maryan clamps on the perineum and hymenal ring at 5 and 7 o'clock position. Inverted triangle of skin was removed from the perineal body and upright triangle from the posterior vaginal floor. The rectovaginal space was dissected to the apex of vagina explored for an enterocele . It was reduced and then plicated with two 2-0 Vicryl pursestring sutures. The rectovaginal space was then obliterated with additional sutures of 2-0 Vicryl. The perineal body was restored with 2-0 Vicryl and then the vaginal wall redundant tissue was resected sharply. Vaginal wall was closed with running suture of 3-0 Vicryl Rapide. That closure was continued past the hymenal ring down on the perineal body then back up subcutaneous to the hymenal ring where the suture was tied. Sponge and needle counts were correct at this point. Blood loss was around 300 mL. Digital rectal exam confirmed no stricture or stenosis of the rectum and no sutures into or through the rectal mucosa. The vagina was now filled with Estrace vaginal cream and a pack of Kerlix gauze was placed. The Nagy catheter was left to dependent drainage. Sponge and needle counts were correct. Estimated blood loss was around 300 mL. The patient tolerated the procedure well and was uneventfully awakened from her general anesthesia and transferred to recovery room in stable condition. Job ID: [id number] DocumentID: [id number] Dictated Date: 01/24/2020 15:04:06 Financial Operations Consultant Date: 01/24/2020 22:20:03 Dictated By: SANJANA LEDESMA MD
[2020-01-25] MEDS: oxyCODONE/APAP 5/325MG (PERCOCET 5) TABLET PO PRN (02:19)
[2020-01-25] MEDS: KETOROLAC 30 MG/ML VIAL IVP SCH (03:37)
[2020-01-25 03:41] VITALS: BP 100/68
[2020-01-25] MEDS ORDERED: LEVOTHYROXINE 25 MCG (LEVOTHROID) TAB PO SCH ×2 (06:30→07:35)
[2020-01-25] MEDS ORDERED: LEVOTHYROXINE 75 MCG (LEVOTHROID) TABLET PO SCH ×3 (06:30→07:36)
[2020-01-25] MEDS ORDERED: LEVOTHYROXINE 75 MCG (LEVOTHROID) TABLET ONE (07:29)
[2020-01-25 08:01] VITALS: BP 92/62
[2020-01-25] MEDS: ONDANSETRON 4 MG (ZOFRAN) ORAL DISSOLVE TAB PO PRN ×2 (08:08→14:39)
--- NOTE | 2020-01-25 08:46 | Progress Note ---
Standard Progress Note Progress Notes/Assess & Plan Date Seen by a Provider: Jan 25, 2020 Time Seen by a Provider: 08:45 Progress/Assessment & Plan This patient is without complaint. She is ambulating, she is voiding. Bladder trial is ongoing. Patient denies chest pain, denies shortness of breath, denies nausea vomiting, and denies headache. Patient has good pain control. Vital Signs Date Time Temp Pulse Resp B/P (MAP) Pulse Ox O2 Delivery O2 Flow Rate FiO2 01/25/20 08:01 36.7 80 16 92/62 (72) 98 Room Air 01/25/20 03:41 36.8 80 16 100/68 (79) 97 Room Air 01/24/20 23:19 36.6 92 16 109/77 (88) 99 Room Air 01/24/20 21:00 Room Air 01/24/20 20:27 36.5 90 14 117/78 (91) 100 Room Air 01/24/20 16:55 37.0 01/24/20 16:30 37.0 86 16 103/56 (72) 97 Room Air 01/24/20 16:10 Room Air 01/24/20 16:00 36.5 12 104/73 (83) 97 Room Air 01/24/20 16:00 Room Air 01/24/20 15:50 16 102/77 (85) 99 Room Air 01/24/20 15:45 Room Air 01/24/20 15:40 16 108/84 (92) 100 OxyMask 10 01/24/20 15:30 OxyMask 10 01/24/20 15:30 16 127/89 (102) 100 OxyMask 10 01/24/20 15:20 18 127/88 (101) 100 OxyMask 10 01/24/20 15:14 OxyMask 10 01/24/20 15:14 37.2 17 109/84 (92) 100 OxyMask 10 01/24/20 12:00 36.6 74 18 110/85 (93) 100 Room Air I & O 01/25/20 07:00 Intake Total 2590 ml Output Total 1510 ml Balance 1080 ml Vital signs are stable. Patient is afebrile. The abdomen is benign. The dressings are clean dry and intact. Extremities show no clubbing cyanosis. There is no Homans sign. Assessment and plan postoperative day number 1 doing well. Plan is for routine convalescence care today and discharge home with follow-up in clinic Final Diagnosis Dysfunctional uterine bleeding/menorrhagia/stress urinary incontinence/uterovaginal prolapse SANJANA LEDESMA MD Jan 25, 2020 08:46
[2020-01-25] MEDS ORDERED: DOCUSATE SODIUM 100 MG (COLACE) CAP PO SCH (09:00)
--- NOTE | 2020-01-25 09:49 | Progress Note - Urology ---
Progress Note-Urology Progress Notes/Assess & Plan Progress/Assessment & Plan VOIDED TWICE. EMPTIES WELL. NO LEAK. HAPPY Final Diagnosis INCONTINENCE SHELLEY MOTT MD Jan 25, 2020 09:48
[2020-01-25] MEDS ORDERED: IBUPROFEN 800 MG (MOTRIN) TAB PO ONE (10:04)
[2020-01-25 12:00] VITALS: BP 101/70
[2020-01-25] MEDS ORDERED: IBUPROFEN 800 MG (MOTRIN) TAB PO SCH (17:00)
[2020-01-26] MEDS ORDERED: LEVOTHYROXINE 88 MCG (LEVOTHORID) TAB PO SCH (06:30)
--- NOTE | 2020-01-30 07:17 | Anesthesia-General Post-Op ---
General Patient Condition Mental Status/LOC: Same as Preop Cardiovascular: Satisfactory Nausea/Vomiting: Absent Respiratory: Satisfactory Pain: Controlled Complications: Absent Post Op Complications Complications None Follow Up Care/Instructions Patient Instructions None needed. Anesthesia/Patient Condition Patient Condition Post-dated progress note Patient was seen during morning rounds on 01-25-2020 and she was doing well, no complaints, stable vital signs, no apparent adverse anesthesia problems. ELY SALDIVAR DO Jan 30, 2020 07:17
== END 2020-01-25 14:20 | disposition home or self-care (01) ==
LOC: SDC 11:02 → WS 16:10 → SDC 01-25 14:20
PROVIDERS: ATTEND Obstetrics & Gynecology
DX: N72 Inflammatory disease of cervix uteri (principal); N39.3 Stress incontinence (female) (male); N81.4 Uterovaginal prolapse, unspecified; N88.8 Other specified noninflammatory disorders of cervix uteri; N80.2 Endometriosis of fallopian tube; N80.0 Endometriosis of uterus; E03.9 Hypothyroidism, unspecified; K21.9 Gastro-esophageal reflux disease without esophagitis; Z88.0 Allergy status to penicillin; Z88.2 Allergy status to sulfonamides; Z79.899 Other long term (current) drug therapy
CPT/HCPCS: 57265; 57288; 58571; 84703; 85025; 86850; 86900; 86901; 87081; 88307; C1771; 36415